=== PATIENT | male | born 1955 | race Caucasian/White ===

== ENCOUNTER 2017-02-28 06:24 | Day surgery (SDC) | payer OTHER ==
[2017-02-27 17:03] VITALS: BMI 29.9
[2017-02-28] VITALS (7 sets, daily range): BP systolic 121–153; BP diastolic 63–84; PULSE 58–80; RESP 15–26; Ht 175.3 cm; Wt 95.0 kg
[~2017-02-28] VITALS: Ht 175.3 cm; Wt 95.0 kg
[2017-02-28] MEDS ORDERED: CEFAZOLIN 1 GM INJ ONE (07:00)
[2017-02-28] MEDS ORDERED: ATOR20TA38 PO (08:03)
[2017-02-28] MEDS ORDERED: BENA20TA48 PO (08:03)
[2017-02-28] MEDS ORDERED: NIFE60TA7 PO (08:03)
[2017-02-28] MEDS ORDERED: HYDR-902 PO (08:04)
[2017-02-28 09:11] LABS: BASOPHILS % 0.4 % (0.0-2.0); EOSINOPHILS # 0.2 10^3/ul (0.0-0.5); EOSINOPHILS % 2.1 % (0.0-7.0); HEMATOCRIT 44.4 % (42.0-52.0); LYMPHOCYTES # 1.4 10^3/ul (0.8-2.9); LYMPHOCYTES % 20.1 % (15.0-51.0); MEAN CORPUSCULAR HEMOGLOBIN 32.9 pg (29.0-33.0); MEAN CORPUSCULAR HGB CONC 33.8 g/dl (32.0-37.0); MEAN CORPUSCULAR VOLUME 97.4 fl (82.0-101.0); MEAN PLATELET VOLUME 10.9 fl (7.4-10.4); MONOCYTE # 0.6 10^3/ul (0.3-0.9); MONOCYTES % 8.7 % (0.0-11.0); NEUTROPHILS % 68.3 % (39.0-77.0); PLATELET COUNT 150 10^3/UL (140-415); RED BLOOD COUNT 4.56 10^6/ul (4.70-6.10); RED CELL DISTRIBUTION WIDTH 11.9 % (11.5-14.5); WHITE BLOOD COUNT 7.1 10^3/ul (4.8-10.8)
[2017-02-28 09:14] LABS: INR 0.88; PROTIME 11.9 Sec (12.2-14.2); PT RATIO 0.9
--- NOTE | 2017-02-28 09:25 | HPN ---
Date/Time of Note Date/Time of Note DATE: 02/28/17 TIME: 09:25 Interval H&P Admission Note Pt. seen H&P reviewed: No system changes JUDY TREVINO MD Feb 28, 2017 09:25
[2017-02-28 09:28] LABS: PARTIAL THROMBOPLASTIN TIME 22.4 Sec (25.0-35.0)
--- NOTE | 2017-02-28 09:28 | OPR ---
Date/Time of Note Date/Time of Note DATE: 02/28/17 TIME: 09:25 Operative Report Preoperative Diagnosis s/p amputation left ring finger, painful amputation stump, enclusion cyst, neuroma Postoperative Diagnosis same Operation/Procedure Performed revision amputation , excise cyst, resect neuroma Surgeon: JUDY TREVINO MD Anesthesia Type: MAC Estimated Blood Loss: minimal Transfusion Required: no Specimens neuroma Complications: no JUDY TREVINO MD Feb 28, 2017 09:28
[2017-02-28] MEDS ORDERED: FENTAnyl 50 MCG/ML VIAL ONE (09:29)
[2017-02-28] MEDS ORDERED: PROPOFOL 20 ML ONE (09:29)
[2017-02-28] MEDS ORDERED: MIDAZOLAM 1 MG/ML 2 ML INJ ONE (09:29)
[2017-02-28] MEDS ORDERED: METOCLOPRAMIDE 10 MG INJ ONE (09:29)
[2017-02-28] MEDS ORDERED: HYDROmorphONE 2 MG/ML SYG ONE (09:39)
[2017-02-28] MEDS ORDERED: LIDOCAINE 1% (STERILE-PAK) 30 ML INJ ONE (09:44)
[2017-02-28 09:51] LABS: ALBUMIN 4.6 g/dl (3.3-4.9); ALBUMIN/GLOBULIN RATIO 1.39; BILIRUBIN,INDIRECT 0.2 mg/dl (0-1.1); BILIRUBIN,TOTAL 0.2 mg/dl (0.2-1.3); TOTAL PROTEIN 7.9 g/dl (6.1-8.1)
[2017-02-28 09:58] LABS: CALCIUM 9.3 mg/dl (8.4-10.2); CREATININE 0.92 mg/dl (0.61-1.24)
[2017-02-28] MEDS ORDERED: METOCLOPRAMIDE 10 MG INJ IV PRN (10:00)
[2017-02-28] MEDS ORDERED: OXYCODONE/ACETAMINOPHEN (5/325) TAB PO PRN ×2 (10:00)
[2017-02-28] MEDS ORDERED: ONDANSETRON 4 MG INJ IV PRN (10:00)
[2017-02-28] MEDS ORDERED: HYDROmorphONE (0.2 MG/ML) 10ML SYG IV PRN ×3 (10:00)
[2017-02-28] MEDS ORDERED: EPHEDrine SULFATE 50 MG/5 ML SYG ONE (10:05)
--- NOTE | 2017-02-28 11:10 | OPR ---
DATE OF OPERATION: 02/28/2017 PREOPERATIVE DIAGNOSES: 1. Status post amputation, left hand ring finger. 2. Painful amputation stump, left hand ring finger. 3. Inclusion cyst stump, left hand ring finger. 4. Painful neuroma stump, left hand ring finger. POSTOPERATIVE DIAGNOSES: 1. Status post amputation, left hand ring finger. 2. Painful amputation stump, left hand ring finger. 3. Inclusion cyst stump, left hand ring finger. 4. Painful neuroma stump, left hand ring finger. OPERATION PERFORMED: 1. Revision of amputation. 2. Resection of neuroma. 3. Excision of inclusion cyst. SURGEON: MD Soco. COIL MACHINE OPERATOR: Staff. ANESTHESIOLOGIST: . ANESTHESIA: General anesthetic by the anesthesiologist. Local anesthetic by this surgeon. SURGICAL PAUSE: I examined the patient in the preop holding area. I monty in the planned surgical incision. I showed the planned surgical incision to the patient. I confirmed the operative procedure and plan. INFORMED CONSENT: At the time, we scheduled the operative procedure back in the office, we talked to the patient about risks and hazards of surgery, discussing operative mortality, wound infection, nerve injury, good result barring no potential complications. At the end of that conversation, the patient signed a note meant to confirm the conversation. OPERATIVE PROCEDURE: Patient taken to surgery, anesthetized sterile , prep and drape performed and pneumatic tourniquet inflated to 250 mmHg. Incision made across the dorsum and it was on the ulnar side of the finger, exposing the amputation, exposing the inclusion cyst. We excised the inclusion cyst with a bit of skin, revised the tip of the finger. We took a quarter- inch residual middle phalanx out and then we found the digital nerve, put on stretch and cut it in resection, removing the neuroma, allowing the divided nerve to track. All cut nerves reform a neuroma. The idea here is to allow it to retract and end up with a neuroma in a less vulnerable spot with less scar tissue. You do not get rid of a neuroma, you relocate it. The wounds were closed in interrupted Vicryl wrap and suture and a bulky dressing applied. No single finger dressing. Unable to do a single finger dressing. Always incorporate at least 2 inner dressings for safety. The procedure was about 15-20 minutes. The patient was awakened in recovery. DISCHARGE MEDICATION: Hydrocodone acetaminophen and Keflex. FOLLOWUP: Will be in our office in a week. The skin suture, Vicryl wrap and suture, which are absorbable, and will fall spontaneously around 14-28 days. Dictated By: Humble Wan MD /[email or web address] /Document#: [id number] MTDD
--- NOTE | 2017-03-03 13:37 | RADRPT ---
Vent Rate: 52 bpm RR Interval: 0 msec LA Interval: 170 msec QRS Duration: 104 msec QT Interval: 412 msec QTC Interval: 383 msec P-R-T Irwin: 40 - 71 - 71 degrees Sinus bradycardia Otherwise normal ECG Electronically Signed By: Rogerio Lin [id number]
== END 2017-02-28 11:41 | disposition home or self-care (01) ==
LOC: SDS 06:24
PROVIDERS: ATTEND Orthopaedic Surgery Hand Surgery
DX: T87.32 Neuroma of amputation stump, left upper extremity (principal); Y83.8 Other surgical procedures as the cause of abnormal reaction of the patient, or of later complication, without mention of misadventure at the time of the procedure; L72.0 Epidermal cyst; I10 Essential (primary) hypertension
CPT/HCPCS: 26951; 80053; 85025; 85610; 85730; 88305; 93005; J0690; J1170; J2250; J2765; J3010; Z7512; Z7610